=== PATIENT | female | born 1945 | race African-American/Black ===

== ENCOUNTER 2019-07-25 20:33 | Inpatient (IN) | payer MEDICARE, OTHER ==
--- NOTE | 2019-07-25 21:13 | PDOC ---
History of Present Illness - General Chief Complaint: Rectal Bleed Stated Complaint: GI BLEED Time Seen by Provider: 07/25/19 21:12 History Source: Patient Exam Limitations: No Limitations - History of Present Illness Initial Comments: 07/25/19 21:59 73yF w PMHx DM, HTN, HLD, CHF, CT s/p stents x2, CVA x2 (R sided weakness) on coumadin, COPD presenting w 1d rectal bleeding. Spotting this morning, then large amounts of bleeding with clots w BM this afternoon. Associated lightheadedness and fatigue. Also has 1d cough, nasal congestion. Denies fever, nausea/vomiting, chest pain, SOB, ABD pain, urinary changes. Was supposed to fly back home to [facility]. Past History - Past Medical History Allergies/Adverse Reactions: Allergies Allergy/AdvReac Type Severity Reaction Status Date / Time amoxicillin Allergy Verified 07/25/19 20:42 Home Medications: Ambulatory Orders Unobtainable 07/25/19 - Psycho Social/Smoking Cessation Hx Smoking History: Never smoked Have you smoked in the past 12 months: No Information on smoking cessation initiated: No Hx Alcohol Use: No Drug/Substance Use Hx: No Review of Systems - Review of Systems Constitutional: No: Chills, Fever HEENTM: No: Eye Pain, Ear Discharge, Hearing Loss Respiratory: Yes: Cough. No: Shortness of Breath Cardiac (ROS): No: Chest Pain, Palpitations ABD/GI: No: Abdominal Distended, Constipated, Diarrhea, Nausea, Vomiting : No: Burning, Dysuria Musculoskeletal: No: Back Pain, Joint Pain Integumentary: Yes: Dryness. No: Bruising Neurological: No: Headache, Seizure Psychiatric: No: Anxiety, Depression Endocrine: No: Intolerance to Cold, Intolerance to Heat Hematologic/Lymphatic: Yes: Blood Clots, Easy Bleeding *Physical Exam - Vital Signs Last Vital Signs Temp Pulse Resp BP Pulse Ox 97.3 F L 126 H 18 107/52 L 98 07/25/19 20:42 07/25/19 20:42 07/25/19 20:42 07/25/19 20:42 07/25/19 20:42 - Physical Exam General Appearance: Yes: Nourished, Appropriately Dressed, Mild Distress HEENT: positive: EOMI, AIDAN, Normal Voice, Nasal Congestion, Hearing Grossly Normal. negative: Scleral Icterus (R), Scleral Icterus (L) Respiratory/Chest: positive: Lungs Clear, Normal Breath Sounds. negative: Chest Tender, Respiratory Distress, Crackles, Rales, Rhonchi, Stridor, Wheezing Cardiovascular: positive: Regular Rhythm, S1, S2, Tachycardia. negative: Edema , Murmur Gastrointestinal/Abdominal: positive: Normal Bowel Sounds, Flat, Soft. negative : Tender, Organomegaly Rectal Exam: positive: heme negative stool, normal exam, normal rectal tone. negative: hemorrhoids Extremity: positive: Delayed Capillary Refill Integumentary: positive: Normal Color, Dry Neurologic: positive: chief minister II-XII NML intact, Fully Oriented, Alert, Normal Response, Responsive. negative: Numbness, Confused, Disoriented ED Treatment Course - LABORATORY CBC & Chemistry Diagram: 07/26/19 04:05 07/25/19 21:51 Medical Decision Making - Medical Decision Making 07/25/19 22:02 EKG sinus tachycardia w PVCs, TWI aVL, ST depression V6, HR 124, QTc 497 Rectal exam - no hemorrhoids, normal rectal tone, no active bleeding WBC 11.2, Hgb 5.4, INR 11.04 CT A/P shows diffuse liquid stools w colonic wall thickening --- 73yF w PMHx DM, HTN, HLD, CHF, CT s/p stents x2, CVA x2 (R sided weakness) on coumadin, COPD presenting w 1d painless rectal bleeding. Hemodynamically stable , no active bleeding Angiodysplasia vs diverticulosis vs colorectal CA. Supratherapeutic coumadin w INR 11. HypoK 2.6 Cough, nasal congestion likely 2/2 viral URI. Low concern for PNA vs COPD exacerbation (clear lung sounds) vs variceal bleeding (normal LFTs, no sign of cirrhosis from blood work) Given 0.5L NS, 2u pRBC, 2 FFP PO+IV KCl, 2 Mg, vit K. Consent obtained for transfusion Consulted Dr Ashley MARIA - advised give 2 FFP, get 2 lines, will follow Admitted ICU for GI bleeding on supratherapeutic warfarin, anemia requiring transfusion, hypokalemia Consulted ICU. Advised no beds available. Discharge - Discharge Information Problems reviewed: Yes Clinical Impression/Diagnosis: Rectal bleed, Hypokalemia Anemia Qualifiers: Anemia type: unspecified type Qualified Code(s): D64.9 - Anemia, unspecified Condition: Guarded - Follow up/Referral - Patient Discharge Instructions - Post Discharge Activity
--- NOTE | 2019-07-25 21:26 | PDOC ---
Attending Attestation - Resident Resident Name: Dre Rodriges - ED Attending Attestation I have performed the following: I have examined & evaluated the patient, The case was reviewed & discussed with the resident, I agree w/resident's findings & plan - HPI HPI: 07/25/19 23:20 Pt comes with rectal bleed heavy and weakness. She was here for the week from [place]. she is staying at the [facility]. Here with her orthodoxy. She was suppiosed to [facility] back today, but was too weak to go. She is obese. - Physicial Exam PE: 07/26/19 03:03 Pt has globular obese abdomen. Pt has minimal bleed on exam. Pt is A+Ox3 and appears tired. Afebrile VSS Heart and lungs normal - Medical Decision Making 07/25/19 23:18 Pt was an alcoholic in the past. She has been free of alcohol for years. Pt has had rectal bleed since last night. Likely all due to INR of 11 and internal hemorrhoids. 07/25/19 23:21 Hb is 5; she will be transfused She will have Vit K+ 5 mg PO for reversal of coumadin. 07/26/19 03:03 Patient Name: JALEEL RUSSO THIS IS A PRELIMINARY REPORT FROM [facility] DATE OF SERVICE: 2019-07-26 00:16:29 IMAGES: 488 EXAM: ABDOMEN \T\ PELVIS CT WITH CONTR HISTORY: Rectal bleeding COMPARISON: None. FINDINGS: Lung bases are clear. The visualized cardiac chambers are normal size and configuration. Normal liver, gallbladder, pancreas, spleen, adrenal glands and kidneys. The stomach and small bowel are normal. Diffuse liquid stools noted with a colonic wall thickening which could indicate a diarrheal illness. No abnormal intraluminal enhancement to suggest a source of GI bleeding. There is no aortic aneurysm. There is no significant retroperitoneal lymphadenopathy. The appendix is normal. Status post hysterectomy. Urinary bladder is unremarkable. There is no pelvic free fluid. No discrete pelvic lymphadenopathy is identified. IMPRESSION: Possible diarrheal illness without colonic wall thickening. 07/26/19 21:20 Repeat CBC and PT/INR ordered. CBC went to 4 prior to 2U PRBC and FFPs Heart Score/ECG Review - ECG Intrepretation Rhythm: Regular Rhythm - Eldon Eldon: Normal - P and TN Delta Wave(s) Present: No WPW: No - QRS Poor R Wave Progression: No Q Wave Present: No - ST and T Early Repolarization: No Non Specific ST-T Wave changes: No Flattened T Waves: No Prolonged Q-T Interval: No - ECG Impressions Tachycardia: Sinus (Pt has PVCs.)
[2019-07-25] MEDS ORDERED: SODIUM CHLORIDE 0.9% 500 ML INFUS.BAG IV ONE (21:46)
[2019-07-25 22:08] LABS: BASO % 0.2 % (0-2.0); HEMATOCRIT 16.2 % (32.4-45.2); LYMPH % 19.4 % (8-40); MCH 29.8 pg (25.7-33.7); MCHC 33.2 g/dl (32.0-36.0); MEAN CELL VOLUME 89.8 fl (80-96); MEAN PLT VOLUME 8.8 fl (7.5-11.1); NEUT % 76.4 % (42.8-82.8); PLATELET COUNT 237 K/MM3 (134-434); RDW 15.4 % (11.6-15.6); WHITE BLOOD COUNT 11.2 K/mm3 (4.0-10.0)
[2019-07-25 22:12] LABS: HEMOGLOBIN 5.4 GM/dL (10.7-15.3)
[2019-07-25 22:32] LABS: PROTHROMBIN TIME (PATIENT) 133.5 SEC (9.7-13.0)
[2019-07-25 22:33] LABS: INR 11.04 (0.83-1.09)
[2019-07-25 22:45] LABS: ALBUMIN 2.4 g/dl (3.4-5.0); BILIRUBIN,TOTAL 0.3 mg/dL (0.2-1); BLOOD UREA NITROGEN 51.9 mg/dL (7-18); CALCIUM 7.6 mg/dL (8.5-10.1); CREATININE 1.1 mg/dL (0.55-1.3); TOT PROT 5.2 g/dl (6.4-8.2)
[2019-07-25 22:56] LABS: POTASSIUM 2.6 mmol/L (3.5-5.1)
[2019-07-25] MEDS ORDERED: POTASSIUM CHLORIDE ORAL LIQUID 20 MEQ/15 ML PO ONE (22:59)
[2019-07-25] MEDS ORDERED: PHYTONADIONE 5 MG TABLET PO ONE (23:02)
[2019-07-25] MEDS ORDERED: MAGNESIUM SULF 50% (8.12 MEQ/2 ML-1 GM VIAL) IVPB ONE (23:04)
[2019-07-25] MEDS ORDERED: KCL 10 MEQ IVPB 10 MEQ/100 ML INFUS.BAG IVPB ONE ×2 (23:22→23:31)
[2019-07-25] MEDS ORDERED: POTASSIUM CHLORIDE ORAL LIQUID 20 MEQ/15 ML ONE (23:22)
[2019-07-25] MEDS: KCL 10 MEQ IVPB 10 MEQ/100 ML INFUS.BAG IVPB SCH (23:28)
[2019-07-25] MEDS ORDERED: PHYTONADIONE 5 MG TABLET ONE (23:31)
[2019-07-25] MEDS ORDERED: MAGNESIUM SULF 50% (8.12 MEQ/2 ML-1 GM VIAL) ONE (23:31)
[2019-07-26] MEDS: KCL 10 MEQ IVPB 10 MEQ/100 ML INFUS.BAG IVPB SCH ×2 (00:38→03:00)
[2019-07-26 04:26] LABS: BASO % 0.3 % (0-2.0); HEMATOCRIT 13.2 % (32.4-45.2); LYMPH % 21.7 % (8-40); MCH 30.8 pg (25.7-33.7); MCHC 34.1 g/dl (32.0-36.0); MEAN CELL VOLUME 90.4 fl (80-96); MEAN PLT VOLUME 8.8 fl (7.5-11.1); MONO % 4.2 % (3.8-10.2); NEUT % 73.8 % (42.8-82.8); PLATELET COUNT 221 K/MM3 (134-434); RBC 1.46 M/mm3 (3.60-5.2); RDW 15.6 % (11.6-15.6); WHITE BLOOD COUNT 9.9 K/mm3 (4.0-10.0)
[2019-07-26 04:35] LABS: HEMOGLOBIN 4.5 GM/dL (10.7-15.3)
[2019-07-26] MEDS ORDERED: PANTOPRAZOLE SODIUM 40 MG VIAL ONE (06:26)
[2019-07-26 06:27] LABS: PROTHROMBIN TIME (PATIENT) 149.7 SEC (9.7-13.0)
[2019-07-26 06:28] LABS: INR 12.37 (0.83-1.09)
[2019-07-26] MEDS: PANTOPRAZOLE SODIUM 80 MG in SODIUM CHLORIDE 100 ML IVPB SCH ×2 (06:33→18:53)
[2019-07-26] MEDS ORDERED: MAGNESIUM SULF 50% (8.12 MEQ/2 ML-1 GM VIAL) IVPB ONE (06:37)
[2019-07-26] MEDS ORDERED: POTASSIUM CHLORIDE TABS 20 MEQ TABLET.ER (FP) PO ONE (06:39)
[2019-07-26] MEDS ORDERED: INSULIN SLIDING SCALE (NOVOLOG) 1 VIAL SQ SCH ×2 (07:00→07:10)
--- NOTE | 2019-07-26 07:14 | PN ---
Teaching Attending Note Name of Resident: Deep Yee ATTENDING PHYSICIAN STATEMENT I saw and evaluated the patient. I reviewed the resident's note and discussed the case with the resident. I agree with the resident's findings and plan as documented. SUBJECTIVE: 73y woman w/ DM, HTN, HLD, CHF, MN s/p stents x2, CVA x2 (R sided weakness) on coumadin, COPD presenting with 1 day of multiple episodes of large bloody bowel movements. Patient also complained of nonbloody nonbilious vomiting. She denies any loss of consciousness, is not taking aspirin for the last 6 months, takes Coumadin however is not taking any higher doses than necessary recently. Dr. Ramirez was called from the ER.Reports remote history of colonoscopy about 20 years ago. OBJECTIVE: Last Vital Signs Temp Pulse Resp BP Pulse Ox 97.4 F L 111 H 19 149/73 100 07/26/19 06:41 07/26/19 06:41 07/26/19 00:41 07/26/19 06:41 07/26/19 06:41 GENERAL: Well developed, well nourished. Awake and alert. No acute distress. HEENT: Normocephalic, atraumatic. PERRLA, EOMI. No conjunctival pallor. Sclera are non- icteric. Moist mucous membranes. Oropharynx is clear. NECK: Supple. Full ROM. No JVD. Carotid pulses 2+ and symmetric, without bruits. No thyromegaly. No lymphadenopathy. CARDIOVASCULAR: Regular rate and rhythm. No murmurs, rubs, or gallops. Distal pulses are 2+ and symmetric. PULMONARY: No evidence of respiratory distress. Lungs clear to auscultation bilaterally. No wheezing, rales or rhonchi. ABDOMINAL: Soft. Non-tender. Non-distended. No rebound or guarding. No organomegaly. Normoactive bowel sounds. MUSCULOSKELETAL Normal range of motion at all joints. No bony deformities or tenderness. No CVA tenderness. EXTREMITIES: No cyanosis. No clubbing. No edema. No calf tenderness. SKIN: Warm and dry. Normal capillary refill. No rashes. No jaundice. NEUROLOGICAL: Mentating well, awake, alert, oriented. PSYCHIATRIC: Cooperative. Good eye contact. Appropriate mood and affect. Abnormal Lab Results 07/25/19 07/25/19 07/25/19 21:51 21:51 21:51 WBC 11.2 H RBC 1.80 L Hgb 5.4 L* Hct 16.2 L Absolute Neuts (auto) 8.6 H PT with INR 133.50 H INR 11.04 H* Potassium 2.6 L* Chloride 97 L BUN 51.9 H Random Glucose 250 H Calcium 7.6 L Total Protein 5.2 L Albumin 2.4 L Crossmatch 07/25/19 07/26/19 07/26/19 21:51 04:05 04:05 WBC RBC 1.46 L Hgb 4.5 L* Hct 13.2 L Absolute Neuts (auto) PT with INR 149.70 H INR 12.37 H* Potassium Chloride BUN Random Glucose Calcium Total Protein Albumin Crossmatch See Detail Imaging studies reviewed ASSESSMENT AND PLAN: Critically ill 73-year-old woman with massive lower GI bleeding, Severe anemia, hypotensive in the ER, tachycardic with the profound diarrhea, hypercoagulable secondary to Coumadin toxicity. Patient is mentating well. Admit to ICU N.p.o. Check CBC every 6 hours Transfuse PRBCs as needed Transfuse FFP's as needed Status post 5 mg of vitamin K IV Monitor vital signs closely Start Protonix drip Monitor INR closely GI consult for urgent evaluation 2 large-bore IVs in upper extremities Avoid any antiplatelets or coagulants Send lactic acid #Severe hypokalemialikely secondary to found diarrheanoted to have U waves on EKG Aggressive potassium supplementation p.o. and IV Monitor on cardiac monitoring Check other electrolytes including magnesium and phosphate and replete PRN #Hyperglycemia NovoLog sliding scale A1c #Hypoalbuminemia #Leukocytosis About 35 minutes spent caring for this critically ill patient
--- NOTE | 2019-07-26 07:26 | HP ---
CHIEF COMPLAINT: Rectal bleeding PCP: Not on Staff. Pt. is from [facility] HISTORY OF PRESENT ILLNESS: Pt. is a 73 y.o. F w/ PMHx. DM2, HTN, HLD, CHF, CAD (had AK, s/p 2 stents- not on ASA), CVA x 2 (residual R. sided weakness on Coumadin), and COPD presents with rectal bleeding over the last day. Pt. states that in the morning bleeding started with some spotting on wipes but that by the afternoon Pt. was having harini blood loss with clots. Pt. states that this has never happened before. Per RN Pt. had multiple bloody BMs in ED. Pt. states that she received a call from her PCP to visit the office because her INR was "really high." Pt. denies any recent adjustments to her Coumadin dose. She takes 5 mg everyday except Saturday when she takes 2.5 mg. Pt. denies any changes to her diet and states that she eats a stable 8 Oz. of leafy green vegetables per week. Pt. states she last had a colonoscopy over 20 years ago that was unremarkable. Pt. had Pap Smear 10 years ago that was negative. Pt. is uptodate with Flu and Pneumonia vaccines. Pt. endorses lightheadedness, fatigue , decreased PO intake over the last 3 days and 1 day of NBNB emesis. Pt. denies eating any strange foods or anyone else in her household being sick. Pt. endorses feeling "cold all the time." Pt. denies fever, rigors, chest pain, or shortness of breath. Unable to obtain medications as Pt. does not remember all of her medications and states her daughter has the list. Daughter will return in the AM. ER course was notable for: (1)0.5L NS, 2 units pRBCs, 2 gm Mag. Sulfate (2) 40 meq PO and 30 meq IV KCL, 5mg Vit. K (3) NPO Recent Travel: Recently came from [place], was supposed to fly back over night. PAST MEDICAL HISTORY: As above PAST SURGICAL HISTORY: Hysterectomy Social History: SmokinPPD x 40 years, Quit ~1 year ago Alcohol: 6-pack/ day x 40 years, Now does not drink Drugs: Denies Pt. lives in her home with her daughter and Son-in law, is independent. Allergies amoxicillin Allergy (Verified 07/25/19 20:42) HOME MEDICATIONS: Home Medications Medication Instructions Recorded Unobtainable 07/25/19 REVIEW OF SYSTEMS As above PHYSICAL EXAMINATION Vital Signs - 24 hr 07/25/19 07/26/19 07/26/19 20:42 00:41 06:41 Temperature 97.3 F L 98.0 F 97.4 F L Pulse Rate 126 H Pulse Rate [ 99 H 111 H Apical] Respiratory 18 19 Rate Blood Pressure 107/52 L Blood Pressure 118/65 149/73 [Right Arm] O2 Sat by Pulse 98 98 100 Oximetry (%) GENERAL: Awake, alert, and fully oriented, in no acute distress. HEAD: Normal with no signs of trauma. EYES: Pupils equal, round and reactive to light, extraocular movements intact, sclera anicteric, conjunctiva clear. EARS, NOSE, THROAT: Ears normal, nares patent, oropharynx clear without exudates. Moist mucous membranes. LUNGS: Anterior breath sounds clear to auscultation, no wheezing or crackles, no accessory muscle use HEART: Regular rate and rhythm, normal S1 and S2 without murmur] ABDOMEN: Soft, nontender, obese not distended, normoactive bowel sounds, no guarding, no rebound, no masses. Per chart: rectal exam was negative to harini blood on glove, or hemorrhoids. Pt. has good rectal tone. UPPER EXTREMITIES: 2+ radial pulses, warm, well-perfused. No cyanosis. No clubbing. No peripheral edema. LOWER EXTREMITIES: 2+ dorsal pedal pulses, warm, well-perfused. No calf tenderness. No peripheral edema. NEUROLOGICAL: Normal speech. Pt. alert and oriented, 4/5 muscle strength on R. side vs. 5/5 muscle strength on left. Sensation grossly intact through out. PSYCHIATRIC: Cooperative. Good eye contact. Appropriate mood and affect. SKIN: Warm, dry, xerotic Laboratory Results - last 24 hr 07/25/19 07/25/19 07/25/19 21:51 21:51 21:51 WBC 11.2 H RBC 1.80 L Hgb 5.4 L* Hct 16.2 L MCV 89.8 MCH 29.8 MCHC 33.2 RDW 15.4 Plt Count 237 MPV 8.8 Absolute Neuts (auto) 8.6 H Neutrophils % 76.4 Lymphocytes % 19.4 Monocytes % 4.0 Eosinophils % 0.0 Basophils % 0.2 Nucleated RBC % 0 PT with INR 133.50 H INR 11.04 H* Sodium 138 Potassium 2.6 L* Chloride 97 L Carbon Dioxide 30 Anion Gap 12 BUN 51.9 H Creatinine 1.1 Est GFR (CKD-EPI)AfAm 58.50 Est GFR (CKD-EPI)NonAf 50.47 POC Glucometer Random Glucose 250 H Calcium 7.6 L Total Bilirubin 0.3 AST 15 ALT 13 Alkaline Phosphatase 63 Creatine Kinase 79 Troponin I 0.03 Total Protein 5.2 L Albumin 2.4 L Blood Type Antibody Screen Crossmatch 07/25/19 07/25/19 07/26/19 21:51 22:50 04:05 WBC 9.9 RBC 1.46 L Hgb 4.5 L* Hct 13.2 L MCV 90.4 MCH 30.8 MCHC 34.1 RDW 15.6 Plt Count 221 MPV 8.8 Absolute Neuts (auto) 7.3 Neutrophils % 73.8 Lymphocytes % 21.7 Monocytes % 4.2 Eosinophils % 0.0 Basophils % 0.3 Nucleated RBC % 0 PT with INR INR Sodium Potassium Chloride Carbon Dioxide Anion Gap BUN Creatinine Est GFR (CKD-EPI)AfAm Est GFR (CKD-EPI)NonAf POC Glucometer Random Glucose Calcium Total Bilirubin AST ALT Alkaline Phosphatase Creatine Kinase Troponin I Total Protein Albumin Blood Type B POSITIVE B POSITIVE Antibody Screen Negative Crossmatch See Detail 07/26/19 07/26/19 04:05 06:48 WBC RBC Hgb Hct MCV MCH MCHC RDW Plt Count MPV Absolute Neuts (auto) Neutrophils % Lymphocytes % Monocytes % Eosinophils % Basophils % Nucleated RBC % PT with INR 149.70 H INR 12.37 H* Sodium Potassium Chloride Carbon Dioxide Anion Gap BUN Creatinine Est GFR (CKD-EPI)AfAm Est GFR (CKD-EPI)NonAf POC Glucometer 197 Random Glucose Calcium Total Bilirubin AST ALT Alkaline Phosphatase Creatine Kinase Troponin I Total Protein Albumin Blood Type Antibody Screen Crossmatch ASSESSMENT/PLAN: Pt. is a 73 y.o. F w/ PMHx. DM2, HTN, HLD, CHF, CAD (had AK, s/p 2 stents- not on ASA), CVA x 2 (residual R. sided weakness on Coumadin), and COPD presents with rectal bleeding over the last day. #Rectal Bleed likey 2/2 Supratherapeutic INR INR 11--> 12.4 f/u Rpt. INR Given Vit. K 5 mg Given 2 units of pRBCs, luiz order 4 more units, will give and additional 2 more units. Repeat CBC was done prior to receiving blood HgB: 5.4-->4.5, f/u Rpt. CBC Q6H Protonix Gtt Consult to GI Dr. Ramirez appreciated Given 1 unit of FFP, will order 3 more units Hold Coumadin, Pt. denies taking ASA, therefore no platelets indicated at this time ICU monitoring Fall precautions VS Q2H, Pt. was tachycardic and hypotensive on arrival, repsonsive to IVF f/u LA Leukocytosis likely reactive from GI bleed, however CT-AP did show diffuse liquid stool with colonic wall thickening. If Pt. develops fever or increasing WBC, would have low threshold to get BCx. and Stool Cx. and start empitic Abx. therrapy. Pt. received Zosyn in ED #Hypokalemia with EKG changes K: 2.6 Given 40 meq PO, and 30meq IV will order an additional 40meq PO and place 40me in IVF cardiac monitoring f/u Mag, Given 2mg, will give an additional 2mg of Mag. sulfate #RONNI on CKD? likely secondary to severe blood loss anemia causing hypo perfusion, will treat anemia, c/w IV, trend renal function #DM2 #HTN #HLD #CHF #CAD #Hx. of CVA hold all AC will need reconciliation of medication in AM when daughter arrives BGMs ACHS ISS ACHS f/u Echo #FEN NS @ monitor electrolytes and replete as needed, hypokalemia as above NPO #DVT Ppx. SCDs Visit type - Emergency Visit Emergency Visit: Yes ED Registration Date: 07/25/19 Care time: The patient presented to the Emergency Department on the above date and was hospitalized for further evaluation of their emergent condition. - New Patient This patient is new to me today: Yes Date on this admission: 07/26/19 - Critical Care Critical Care patient: Yes Total Critical Care Time (in minutes): 45 Critical Care Statement: The care of this patient involved high complexity decision making to prevent further life threatening deterioration of the patient 's condition and/or to evaluate & treat vital organ system(s) failure or risk of failure. ATTENDING PHYSICIAN STATEMENT I saw and evaluated the patient. I reviewed the resident's note and discussed the case with the resident. I agree with the resident's findings and plan as documented. SUBJECTIVE: OBJECTIVE: ASSESSMENT AND PLAN:
--- NOTE | 2019-07-26 07:31 | CON.GI ---
Consult Consult Specialty:: GI coverage for Dr Chavez - History of Present Illness History of Present Illness: 73yF w PMHx DM, HTN, HLD, CHF, MN s/p stents x2, CVA x2 (R sided weakness) on coumadin, COPD was doing well until yesterday afternoon when she developed several episodes of profuse painless rectal bleeding. SHe has Afib and is on Coumadin. INR is supratherapeutic. The last bowel movement was at 6 am this morning. She receive 2 units of FFP and 3units of PRBC. Ct pending--no bleeding lesions await official read - Alcohol/Substance Use Hx Alcohol Use: No - Smoking History Smoking history: Never smoked Have you smoked in the past 12 months: No Home Medications - Allergies Allergies/Adverse Reactions: Allergies Allergy/AdvReac Type Severity Reaction Status Date / Time amoxicillin Allergy Verified 07/25/19 20:42 - Home Medications Home Medications: Ambulatory Orders Atorvastatin Ca [Lipitor] 40 mg PO HS 07/26/19 Carvedilol [Coreg -] 1 tab PO BID 07/26/19 Clopidogrel Bisulfate [Plavix] 75 mg PO DAILY 07/26/19 Fluticasone Propionate [Flovent Hfa] 1 puff IH BID 07/26/19 Furosemide [Lasix] 40 mg PO BID 07/26/19 Lisinopril 10 mg PO DAILY 07/26/19 Nitroglycerin 0.4 mg SL Q5M PRN 07/26/19 Tiotropium Br/Olodaterol HCl [Stiolto Respimat Inhal [place]] 2 puff IH DAILY 03/06 Warfarin Na [Coumadin] 5 mg PO ASDIR 07/26/19 Physical Exam-GI Vital Signs: Vital Signs Temperature 97.4 F L 07/26/19 06:41 Pulse Rate 111 H 07/26/19 06:41 Respiratory Rate 19 07/26/19 00:41 Blood Pressure 149/73 07/26/19 06:41 O2 Sat by Pulse Oximetry (%) 100 07/26/19 06:41 Constitutional: Yes: Obese Eyes: Yes: Conjunctiva Clear Respiratory: Yes: CTA Bilaterally ...Palpate: No: Firm/Rigid, Guarding, Hepatomegaly, Mass, Pulsatile Mass, Splenomegaly Labs: CBC, BMP 07/26/19 04:05 INR, PTT INR 12.37 (0.83-1.09) H* 07/26/19 04:05 Home Medications Medication Instructions Recorded Unobtainable 07/25/19 Home Medication List Medication Instructions Recorded Confirmed Type Unobtainable 07/25/19 07/25/19 History Active Medications Generic Name Dose Route Start Last Admin Trade Name Stephany PRN Reason Stop Dose Admin Chlorhexidine Gluconate 1 applic 07/26/19 22:00 Hibiclens For Decolonization - TP HS NIKUNJ Pantoprazole Sodium 80 mg/ 100 mls @ 10 mls/hr 07/26/19 06:15 07/26/19 06:33 Sodium Chloride IVPB 07/29/19 06:10 10 mls/hr Q10H INKUNJ Administration 8 MG/HR Potassium Chloride 40 meq/ 1,020 mls @ 125 mls/hr 07/26/19 07:15 Sodium Chloride IV Q8H NIKUNJ Insulin Aspart 1 vial 07/26/19 07:10 Novolog Vial Sliding Scale - SQ ACHS NIKUNJ Protocol Mupirocin 1 applic 07/26/19 10:00 Bactroban Ointment (For Decolonization) - NS 07/31/19 09:59 BID NIKUNJ CBCD WBC 10.8 K/mm3 (4.0-10.0) H 07/26/19 09:05 RBC 2.33 M/mm3 (3.60-5.2) L 07/26/19 09:05 Hgb 6.8 GM/dL (10.7-15.3) L* 07/26/19 09:05 Hct 20.1 % (32.4-45.2) L D 07/26/19 09:05 MCV 86.3 fl (80-96) 07/26/19 09:05 MCHC 33.7 g/dl (32.0-36.0) 07/26/19 09:05 RDW 16.0 % (11.6-15.6) H 07/26/19 09:05 Plt Count 142 K/MM3 (134-434) D 07/26/19 09:05 MPV 8.4 fl (7.5-11.1) 07/26/19 09:05 CMP Sodium 142 mmol/L (136-145) 07/26/19 09:26 Potassium 3.1 mmol/L (3.5-5.1) L 07/26/19 09:26 Chloride 104 mmol/L (98-107) 07/26/19 09:26 Carbon Dioxide 32 mmol/L (21-32) 07/26/19 09:26 Anion Gap 7 MMOL/L (8-16) L 07/26/19 09:26 BUN 44.7 mg/dL (7-18) H 07/26/19 09:26 Creatinine 0.8 mg/dL (0.55-1.3) 07/26/19 09:26 Random Glucose 187 mg/dL (74-106) H 07/26/19 09:26 Calcium 7.7 mg/dL (8.5-10.1) L 07/26/19 09:26 Total Bilirubin 0.3 mg/dL (0.2-1) 07/25/19 21:51 AST 15 U/L (15-37) 07/25/19 21:51 ALT 13 U/L (13-61) 07/25/19 21:51 Alkaline Phosphatase 63 U/L (45-117) 07/25/19 21:51 Total Protein 5.2 g/dl (6.4-8.2) L 07/25/19 21:51 Albumin 2.4 g/dl (3.4-5.0) L 07/25/19 21:51 CARDIAC ENZYMES Creatine Kinase 79 U/L (26-192) 07/25/19 21:51 Troponin I 0.03 ng/ml (0.00-0.05) 07/25/19 21:51 Problem List - Problems (1) Painless rectal bleeding Assessment/Plan: r/o diverticular bleeding R> transfuse to Hgb greater than 8 may have ice chips will need to be in ICU Dr Chavez will resume care in am Code(s): K62.5 - HEMORRHAGE OF ANUS AND RECTUM
[2019-07-26 07:36] LABS: BLOOD UREA NITROGEN 50.7 mg/dL (7-18); CALCIUM 7.3 mg/dL (8.5-10.1); POTASSIUM 3.1 mmol/L (3.5-5.1)
[2019-07-26 09:19] LABS: HEMATOCRIT 20.1 % (32.4-45.2); MCH 29.1 pg (25.7-33.7); MCHC 33.7 g/dl (32.0-36.0); MEAN CELL VOLUME 86.3 fl (80-96); MEAN PLT VOLUME 8.4 fl (7.5-11.1); PLATELET COUNT 142 K/MM3 (134-434); RBC 2.33 M/mm3 (3.60-5.2); WHITE BLOOD COUNT 10.8 K/mm3 (4.0-10.0)
[2019-07-26 09:26] LABS: MAGNESIUM 3.4 mg/dL (1.8-2.4)
[2019-07-26 09:27] LABS: HEMOGLOBIN 6.8 GM/dL (10.7-15.3)
[2019-07-26 09:36] LABS: INR 2.05 (0.83-1.09); PROTHROMBIN TIME (PATIENT) 24.4 SEC (9.7-13.0)
--- NOTE | 2019-07-26 09:36 | PN ---
Progress Note (short form) - Note Progress Note: Subjective: still in ER. denies abd pain, CP , SOB, palpitations, or dysuria. feels occasionally dizzy. felt light headed when she sat for me during exam. feels fatigued. reported non bloody emesis at home. She was not aware of her rectal bleed due to possible LOC , but her daughter told her she had dark/black blood from rectum. In ER she was bleeding but it stopped some time at night , RN is not sure. RN got report that blood was dark. No h/o GI bleed. has A fib per her, and is on coumadin. was prescribed prednisone and Abx recently. she finished both already. on had INR checked and was told to stop her coumadin due to elevated level Objective: Vital Signs: Last Vital Signs Temp Pulse Resp BP Pulse Ox 97.4 F L 102 H 20 165/70 100 07/26/19 06:41 07/26/19 08:19 07/26/19 08:19 07/26/19 08:19 07/26/19 08:19 Laboratory Results - last 24 hr 07/25/19 07/25/19 07/25/19 21:51 21:51 21:51 WBC 11.2 H RBC 1.80 L Hgb 5.4 L* Hct 16.2 L MCV 89.8 MCH 29.8 MCHC 33.2 RDW 15.4 Plt Count 237 MPV 8.8 Absolute Neuts (auto) 8.6 H Neutrophils % 76.4 Lymphocytes % 19.4 Monocytes % 4.0 Eosinophils % 0.0 Basophils % 0.2 Nucleated RBC % 0 PT with INR 133.50 H INR 11.04 H* Sodium 138 Potassium 2.6 L* Chloride 97 L Carbon Dioxide 30 Anion Gap 12 BUN 51.9 H Creatinine 1.1 Est GFR (CKD-EPI)AfAm 58.50 Est GFR (CKD-EPI)NonAf 50.47 POC Glucometer Random Glucose 250 H Calcium 7.6 L Magnesium Total Bilirubin 0.3 AST 15 ALT 13 Alkaline Phosphatase 63 Creatine Kinase 79 Troponin I 0.03 Total Protein 5.2 L Albumin 2.4 L Blood Type Antibody Screen Crossmatch 07/25/19 07/25/19 07/26/19 21:51 22:50 04:05 WBC RBC Hgb Hct MCV MCH MCHC RDW Plt Count MPV Absolute Neuts (auto) Neutrophils % Lymphocytes % Monocytes % Eosinophils % Basophils % Nucleated RBC % PT with INR INR Sodium 140 Potassium 3.1 L Chloride 101 Carbon Dioxide 28 Anion Gap 11 BUN 50.7 H Creatinine 1.0 Est GFR (CKD-EPI)AfAm 65.64 Est GFR (CKD-EPI)NonAf 56.64 POC Glucometer Random Glucose 254 H Calcium 7.3 L Magnesium 3.4 H Total Bilirubin AST ALT Alkaline Phosphatase Creatine Kinase Troponin I Total Protein Albumin Blood Type B POSITIVE B POSITIVE Antibody Screen Negative Crossmatch See Detail 07/26/19 07/26/19 07/26/19 04:05 04:05 06:48 WBC 9.9 RBC 1.46 L Hgb 4.5 L* Hct 13.2 L MCV 90.4 MCH 30.8 MCHC 34.1 RDW 15.6 Plt Count 221 MPV 8.8 Absolute Neuts (auto) 7.3 Neutrophils % 73.8 Lymphocytes % 21.7 Monocytes % 4.2 Eosinophils % 0.0 Basophils % 0.3 Nucleated RBC % 0 PT with INR 149.70 H INR 12.37 H* Sodium Potassium Chloride Carbon Dioxide Anion Gap BUN Creatinine Est GFR (CKD-EPI)AfAm Est GFR (CKD-EPI)NonAf POC Glucometer 197 Random Glucose Calcium Magnesium Total Bilirubin AST ALT Alkaline Phosphatase Creatine Kinase Troponin I Total Protein Albumin Blood Type Antibody Screen Crossmatch 07/26/19 09:05 WBC 10.8 H RBC 2.33 L Hgb 6.8 L* Hct 20.1 L D MCV 86.3 MCH 29.1 MCHC 33.7 RDW 16.0 H Plt Count 142 D MPV 8.4 Absolute Neuts (auto) Neutrophils % Lymphocytes % Monocytes % Eosinophils % Basophils % Nucleated RBC % PT with INR INR Sodium Potassium Chloride Carbon Dioxide Anion Gap BUN Creatinine Est GFR (CKD-EPI)AfAm Est GFR (CKD-EPI)NonAf POC Glucometer Random Glucose Calcium Magnesium Total Bilirubin AST ALT Alkaline Phosphatase Creatine Kinase Troponin I Total Protein Albumin Blood Type Antibody Screen Crossmatch Physical Exam: NAD, awake, alert, cooperative . MMM, nl oropharynx. CV: RRR, no MRG Lungs: scattered wheezes in lower lung cormier ABd: soft, mild TTP in lower quadrants. NL BS. no guarding Ext : No edema or erythema . dry skin . neuro: EOMI, round equal pupils, reactive to light. slight efacement in L nasolabial fold. tongue and uvula at mid line . strength 5/5 in upper and lower extremities proximally and distally. 2+ knee jerk and biceps reflexes b/l. Imaging: Abd/P CT prelim read: liquid stool with no colonic wall thickening. EKG: U waves Assessment/Plan: 73 y/o lady with h/o A fib, DM, HTN, HLD, CHF, CT s/p stents x2, CVA x2, on coumadin, COPD who presented with rectal bleed and was found to have coumadin coagulopathy and severe anemia 1- Severe acute blood loss anemia: due to GI bleed 2- GI bleed . most likely lower 3- severe coumadin coagulopathy 4- severe hypokalemia 5- h/o A fib 6- H/o DM plan : - now s/p 2 units of RBC and 2 more are ordered. - now s/p 3 units of FFPs. s/p 5 of Vit K - will check CBC and INR now . will decide on next blood product after results - hemodynamically stable , but tachycardic and has signs of orthostatic hypotension - explained to her the risk of stroke with holding coumadin and reversing her coagulopathy in the setting of severe bleed . she accepts risk - GI was called, but patient has not been seen yet. Note ispending Recs - cont PPI gtt for now ( recent prednisone, not clear if black stool ) - received IV and PO K. will repeat level now - corrected Ca 8.3. will have to monitor level and give Ca after few units of RBC - EKG reviewed. - IVF - has 2 peripheral IVs and an EJ was just placed - patient is not stable for the floor at this moment due to tachycardia and signs of orthostasis. needs ICU monitoring. spoke to Nitish in ICU. spoke to RN lasting room supervisor. working on ICU bed . - SCDS Visit type - Emergency Visit Emergency Visit: Yes ED Registration Date: 07/25/19 Care time: The patient presented to the Emergency Department on the above date and was hospitalized for further evaluation of their emergent condition. - New Patient This patient is new to me today: Yes Date on this admission: 07/26/19 - Critical Care Critical Care patient: Yes Total Critical Care Time (in minutes): 45 Critical Care Statement: The care of this patient involved high complexity decision making to prevent further life threatening deterioration of the patient 's condition and/or to evaluate & treat vital organ system(s) failure or risk of failure.
[2019-07-26] MEDS ORDERED: ALBUTEROL SO4 0.083% IH SOL 2.5 MG/3 ML VIAL.NEB. NEB PRN (10:10)
[2019-07-26 10:36] LABS: BLOOD UREA NITROGEN 44.7 mg/dL (7-18); CALCIUM 7.7 mg/dL (8.5-10.1); CREATININE 0.8 mg/dL (0.55-1.3); POTASSIUM 3.1 mmol/L (3.5-5.1)
[2019-07-26] MEDS: INSULIN SLIDING SCALE (NOVOLOG) 1 VIAL SQ SCH ×3 (10:38→22:28)
[2019-07-26] MEDS: MUPIROCIN 2% TOPICAL OINTMENT FOR DECOLONIZATION NS SCH ×2 (11:23→22:19)
[2019-07-26] MEDS: SODIUM CHLORIDE 1,000 ML with POTASSIUM CHLORIDE 40 MEQ IV SCH ×2 (12:56→16:13)
--- NOTE | 2019-07-26 14:13 | EKG ---
Test Reason : Blood Pressure : / mmHG Vent. Rate : 124 BPM Atrial Rate : 124 BPM P-R Int : 130 ms QRS Dur : 098 ms QT Int : 346 ms P-R-T Axes : 049 -29 107 degrees QTc Int : 497 ms SINUS TACHYCARDIA WITH OCCASIONAL PREMATURE VENTRICULAR COMPLEXES ABNORMAL ECG Confirmed by MD WILL, MIGUEL ANGEL ([id number]) on 07/26/2019 2:13:04 PM Referred By: Confirmed By:MIGUEL ANGEL SOLIS MD
--- NOTE | 2019-07-26 16:55 | CONSULT ---
Consult Consult Specialty:: Pulm/CCM Reason for Consultation:: Lower GIB; lightheadedness - History of Present Illness Chief Complaint: Lightheadedness History of Present Illness: 73yF w PMHx DM, HTN, HLD, CHF, ME s/p stents x2, CVA x2 (R sided weakness) on coumadin, COPD. She states that her INR is monitored regularly and at her last appointment her coumadin was held d/t elevated INR. She was rescheduled to recheck INR on saturday. She was doing well until yesterday afternoon when she had a presyncopal episode while on the toilet. Her daughter noted large amt of bright red blood per rectum, called EMS and brought her to the ED. In the ED she had no more episodes of BRBPR. VS stable 130/60, HR 110-115. Labs notable for Hgb 5.4->4.5->6.8. Her INR 11->12->2.05. She received 2 units of FFP and 3units of PRBC. CT A/P done. She was transferred to ICU for further management. - History Source History Provided By: Patient, Medical Record Limitations to Obtaining History: No Limitations - Past Medical History CONSTRUCTION ESTIMATOR: Yes: CVA Cardio/Vascular: Yes: AFIB, ME ...: No Endocrine: Yes: Diabetes Mellitus - Alcohol/Substance Use Hx Alcohol Use: No - Smoking History Smoking history: Former smoker Have you smoked in the past 12 months: No Home Medications - Allergies Allergies/Adverse Reactions: Allergies Allergy/AdvReac Type Severity Reaction Status Date / Time amoxicillin Allergy Verified 07/25/19 20:42 - Home Medications Home Medications: Ambulatory Orders Atorvastatin Ca [Lipitor] 40 mg PO HS 07/26/19 Carvedilol [Coreg -] 1 tab PO BID 07/26/19 Clopidogrel Bisulfate [Plavix] 75 mg PO DAILY 07/26/19 Fluticasone Propionate [Flovent Hfa] 1 puff IH BID 07/26/19 Furosemide [Lasix] 40 mg PO BID 07/26/19 Lisinopril 10 mg PO DAILY 07/26/19 Nitroglycerin 0.4 mg SL Q5M PRN 07/26/19 Tiotropium Br/Olodaterol HCl [Stiolto Respimat Inhal [place]] 2 puff IH DAILY 03/06 Warfarin Na [Coumadin] 5 mg PO ASDIR 07/26/19 Family Medical History Family History: Unremarkable Review of Systems - Review of Systems Constitutional: reports: Weakness Eyes: reports: No Symptoms HENT: reports: No Symptoms Neck: reports: No Symptoms Cardiovascular: reports: No Symptoms Respiratory: reports: No Symptoms Gastrointestinal: reports: Abdominal Pain Genitourinary: reports: No Symptoms Integumentary: reports: No Symptoms Neurological: reports: Confusion Endocrine: reports: No Symptoms Hematology/Lymphatic: reports: No Symptoms Psychiatric: reports: No Symptoms Physical Exam Vital Signs: Vital Signs Temperature 98.2 F 07/26/19 12:50 Pulse Rate 105 H 07/26/19 15:37 Respiratory Rate 22 H 07/26/19 15:37 Blood Pressure 149/104 H 07/26/19 15:37 O2 Sat by Pulse Oximetry (%) 100 07/26/19 15:30 Constitutional: Yes: Well Nourished, No Distress, Calm Eyes: Yes: WNL, Conjunctiva Clear, EOM Intact HENT: Yes: WNL, Atraumatic, Normocephalic Neck: Yes: Supple, Trachea Midline Cardiovascular: Yes: Regular Rate and Rhythm, Tachycardia, S1, S2 Respiratory: Yes: Regular, CTA Bilaterally Gastrointestinal: Yes: Normal Bowel Sounds, Soft Extremities: Yes: WNL Edema: No Peripheral Pulses WNL: Yes Neurological: Yes: WNL, Alert, Oriented ...Motor Strength: WNL Psychiatric: Yes: WNL Labs: CBC, BMP 07/26/19 09:05 07/26/19 09:26 CBC,CMP WBC 10.8 K/mm3 (4.0-10.0) H 07/26/19 09:05 RBC 2.33 M/mm3 (3.60-5.2) L 07/26/19 09:05 Hgb 6.8 GM/dL (10.7-15.3) L* 07/26/19 09:05 Hct 20.1 % (32.4-45.2) L D 07/26/19 09:05 MCV 86.3 fl (80-96) 07/26/19 09:05 MCH 29.1 pg (25.7-33.7) 07/26/19 09:05 MCHC 33.7 g/dl (32.0-36.0) 07/26/19 09:05 RDW 16.0 % (11.6-15.6) H 07/26/19 09:05 Plt Count 142 K/MM3 (134-434) D 07/26/19 09:05 MPV 8.4 fl (7.5-11.1) 07/26/19 09:05 Absolute Neuts (auto) 7.3 K/mm3 (1.5-8.0) 07/26/19 04:05 Neutrophils % 73.8 % (42.8-82.8) 07/26/19 04:05 Lymphocytes % 21.7 % (8-40) 07/26/19 04:05 Monocytes % 4.2 % (3.8-10.2) 07/26/19 04:05 Eosinophils % 0.0 % (0-4.5) 07/26/19 04:05 Basophils % 0.3 % (0-2.0) 07/26/19 04:05 Nucleated RBC % 0 % (0-0) 07/26/19 04:05 Sodium 142 mmol/L (136-145) 07/26/19 09:26 Potassium 3.1 mmol/L (3.5-5.1) L 07/26/19 09:26 Chloride 104 mmol/L (98-107) 07/26/19 09:26 Carbon Dioxide 32 mmol/L (21-32) 07/26/19 09:26 Anion Gap 7 MMOL/L (8-16) L 07/26/19 09:26 BUN 44.7 mg/dL (7-18) H 07/26/19 09:26 Creatinine 0.8 mg/dL (0.55-1.3) 07/26/19 09:26 Est GFR (CKD-EPI)AfAm 85.97 07/26/19 09:26 Est GFR (CKD-EPI)NonAf 74.17 07/26/19 09:26 POC Glucometer 133 UNITS (80-120) 07/26/19 10:36 Random Glucose 187 mg/dL (74-106) H 07/26/19 09:26 Calcium 7.7 mg/dL (8.5-10.1) L 07/26/19 09:26 Magnesium 3.4 mg/dL (1.8-2.4) H 07/26/19 04:05 Total Bilirubin 0.3 mg/dL (0.2-1) 07/25/19 21:51 AST 15 U/L (15-37) 07/25/19 21:51 ALT 13 U/L (13-61) 07/25/19 21:51 Alkaline Phosphatase 63 U/L (45-117) 07/25/19 21:51 Creatine Kinase 79 U/L (26-192) 07/25/19 21:51 Troponin I 0.03 ng/ml (0.00-0.05) 07/25/19 21:51 Total Protein 5.2 g/dl (6.4-8.2) L 07/25/19 21:51 Albumin 2.4 g/dl (3.4-5.0) L 07/25/19 21:51 Imaging - Results Cat Scan: Pending Problem List - Problems (1) Anemia Code(s): D64.9 - ANEMIA, UNSPECIFIED Qualifiers: Anemia type: unspecified type Qualified Code(s): D64.9 - Anemia, unspecified (2) Painless rectal bleeding Code(s): K62.5 - HEMORRHAGE OF ANUS AND RECTUM (3) Rectal bleed Code(s): K62.5 - HEMORRHAGE OF ANUS AND RECTUM Assessment/Plan 73yF w PMHx DM, HTN, HLD, CHF, ME s/p stents x2, CVA x2 (R sided weakness) on coumadin, COPD who presented with severe anemia 2/2 BRBPR i/s/o supratherapeutic INR Plan: -GI consulted; planned for EGD/colonoscopy -Maintain large bore IV access -Serial CBC -PPI -Normal transfusion threshold -Monitor INR; FFP and vit K for INR>1.5 and persistent bleeding -NPO for now -Hold antihypertensives -Fingersticks -vendwaines VICKI Dorsey
[2019-07-26 17:15] LABS: HEMATOCRIT 23.8 % (32.4-45.2); HEMOGLOBIN 8.2 GM/dL (10.7-15.3); MCH 29.4 pg (25.7-33.7); MCHC 34.5 g/dl (32.0-36.0); MEAN CELL VOLUME 85.1 fl (80-96); MEAN PLT VOLUME 8.8 fl (7.5-11.1); PLATELET COUNT 129 K/MM3 (134-434); RDW 15.3 % (11.6-15.6); WHITE BLOOD COUNT 10.5 K/mm3 (4.0-10.0)
[2019-07-26] MEDS ORDERED: PT OWN MED DRAWER 7, Y5N ONE (17:31)
[2019-07-26 17:34] LABS: INR 2.39 (0.83-1.09); PROTHROMBIN TIME (PATIENT) 28.5 SEC (9.7-13.0)
[2019-07-26] MEDS ORDERED: POTASSIUM CHLORIDE ORAL LIQUID 20 MEQ/15 ML PO ONE (19:29)
[2019-07-26] MEDS ORDERED: SODIUM CHLORIDE 1,000 ML IV SCH (19:30)
[2019-07-26] MEDS: SODIUM CHLORIDE 0.9%/KCL 20 MEQ/1,000 ML INFUS.BAG IV SCH (20:15)
[2019-07-26] MEDS ORDERED: CHLORHEXIDINE GLUCONATE 4% CLEANSER FOR DECOLONIZATION TP SCH (22:00)
[2019-07-27 01:41] LABS: HEMATOCRIT 22.5 % (32.4-45.2); HEMOGLOBIN 7.8 GM/dL (10.7-15.3); MCH 29.4 pg (25.7-33.7); MCHC 34.5 g/dl (32.0-36.0); MEAN CELL VOLUME 85.1 fl (80-96); MEAN PLT VOLUME 8.8 fl (7.5-11.1); PLATELET COUNT 126 K/MM3 (134-434); RBC 2.64 M/mm3 (3.60-5.2); RDW 15.9 % (11.6-15.6); WHITE BLOOD COUNT 8.3 K/mm3 (4.0-10.0)
[2019-07-27 01:59] LABS: INR 2.36 (0.83-1.09); PROTHROMBIN TIME (PATIENT) 28.1 SEC (9.7-13.0)
[2019-07-27] MEDS: INSULIN SLIDING SCALE (NOVOLOG) 1 VIAL SQ SCH ×2 (06:05→17:58)
[2019-07-27 06:31] LABS: BASO % 0.7 % (0-2.0); EOS % 0.3 % (0-4.5); HEMATOCRIT 23.2 % (32.4-45.2); LYMPH % 31.7 % (8-40); MCH 29.6 pg (25.7-33.7); MCHC 34.7 g/dl (32.0-36.0); MEAN CELL VOLUME 85.5 fl (80-96); MEAN PLT VOLUME 8.5 fl (7.5-11.1); MONO % 5.5 % (3.8-10.2); NEUT % 61.8 % (42.8-82.8); PLATELET COUNT 123 K/MM3 (134-434); RBC 2.71 M/mm3 (3.60-5.2); WHITE BLOOD COUNT 7.1 K/mm3 (4.0-10.0)
[2019-07-27 08:18] LABS: INR 2.14 (0.83-1.09); PROTHROMBIN TIME (PATIENT) 25.4 SEC (9.7-13.0)
[2019-07-27 08:33] LABS: CALCIUM 7.7 mg/dL (8.5-10.1); CREATININE 0.6 mg/dL (0.55-1.3); MAGNESIUM 2.6 mg/dL (1.8-2.4); PHOSPHOROUS 1.8 mg/dL (2.5-4.9); POTASSIUM 4.2 mmol/L (3.5-5.1)
[2019-07-27] MEDS ORDERED: NAPH,MB-DB/K PH,MBDB POWDER PACKET PO ONE (08:33)
[2019-07-27] MEDS ORDERED: TIOTROPIUM/OLODATEROL HCL (STIOLTO) 4 GM INHALER IH SCH (10:00)
[2019-07-27] MEDS: SODIUM CHLORIDE 0.9%/KCL 20 MEQ/1,000 ML INFUS.BAG IV SCH (10:32)
[2019-07-27] MEDS: MUPIROCIN 2% TOPICAL OINTMENT FOR DECOLONIZATION NS SCH (10:34)
--- NOTE | 2019-07-27 11:52 | PN ---
Teaching Attending Note Name of Resident: Daniel Watts ATTENDING PHYSICIAN STATEMENT I saw and evaluated the patient. I reviewed the resident's note and discussed the case with the resident. I agree with the resident's findings and plan as documented. SUBJECTIVE: Patient seen and examined in the ICU. Awake and alert. ECHO being performed. Denies occult bleeding. No CP or SOB. Intake & Output 07/24/19 07/25/19 07/26/19 07/27/19 23:59 23:59 23:59 23:59 Intake Total 1101 846 Balance 1101 846 Weight 220 lb 196 lb 9.6 oz 196 lb Last Vital Signs Temp Pulse Resp BP Pulse Ox 98 F 90 22 H 130/60 100 07/27/19 05:00 07/27/19 08:00 07/27/19 08:00 07/27/19 08:00 07/27/19 07:50 Active Medications Albuterol Sulfate (Ventolin 0.083% Nebulizer Soln -) 1 amp NEB Q4H PRN PRN Reason: SHORT OF BREATH/WHEEZING Chlorhexidine Gluconate (Hibiclens For Decolonization -) 1 applic TP HS [facility] Last Admin: 07/26/19 22:19 Dose: 1 applic Potassium Chloride/Sodium Chloride (Ns+20 Meq Kcl -) 20 meq in 1,000 mls @ 75 mls/hr IV ASDIR [facility] Last Admin: 07/27/19 10:32 Dose: 75 mls/hr Insulin Aspart (Novolog Vial Sliding Scale -) 1 vial SQ Q6H [facility]; Protocol Last Admin: 07/27/19 06:05 Dose: Not Given Mupirocin (Bactroban Ointment (For Decolonization) -) 1 applic NS BID [facility] Stop: 07/31/19 09:59 Last Admin: 07/27/19 10:34 Dose: 1 applic Tiotropium [place]/Olodaterol (Stiolto Respimat Inhal [place]) 2 puff IH DAILY [facility] Constitutional: Yes: Well Nourished, No Distress, Calm Eyes: Yes: WNL, Conjunctiva Clear, EOM Intact HENT: Yes: WNL, Atraumatic, Normocephalic Neck: Yes: Supple, Trachea Midline Cardiovascular: Yes: Regular Rate and Rhythm, Tachycardia, S1, S2 Respiratory: Yes: Regular, CTA Bilaterally Gastrointestinal: Yes: Normal Bowel Sounds, Soft Extremities: Yes: WNL Edema: No Peripheral Pulses WNL: Yes Neurological: Yes: WNL, Alert, Oriented ...Motor Strength: WNL Psychiatric: Yes: WNL Labs: Laboratory Results - last 24 hr 07/25/19 07/26/19 07/26/19 21:51 17:02 17:02 WBC 10.5 H RBC 2.80 L Hgb 8.2 L Hct 23.8 L D MCV 85.1 MCH 29.4 MCHC 34.5 RDW 15.3 Plt Count 129 L MPV 8.8 Absolute Neuts (auto) Neutrophils % Lymphocytes % Monocytes % Eosinophils % Basophils % Nucleated RBC % PT with INR 28.50 H INR 2.39 H Sodium Potassium Chloride Carbon Dioxide Anion Gap BUN Creatinine Est GFR (CKD-EPI)AfAm Est GFR (CKD-EPI)NonAf POC Glucometer Random Glucose Calcium Phosphorus Magnesium Blood Type B POSITIVE Antibody Screen Negative Crossmatch See Detail 07/26/19 07/26/19 07/26/19 17:02 17:24 22:27 WBC RBC Hgb Hct MCV MCH MCHC RDW Plt Count MPV Absolute Neuts (auto) Neutrophils % Lymphocytes % Monocytes % Eosinophils % Basophils % Nucleated RBC % PT with INR INR Sodium Potassium Chloride Carbon Dioxide Anion Gap BUN Creatinine Est GFR (CKD-EPI)AfAm Est GFR (CKD-EPI)NonAf POC Glucometer 156 147 Random Glucose Calcium 7.7 L Phosphorus Magnesium Blood Type Antibody Screen Crossmatch 07/27/19 07/27/19 07/27/19 01:20 01:20 01:20 WBC 8.3 RBC 2.64 L Hgb 7.8 L Hct 22.5 L MCV 85.1 MCH 29.4 MCHC 34.5 RDW 15.9 H Plt Count 126 L MPV 8.8 Absolute Neuts (auto) Neutrophils % Lymphocytes % Monocytes % Eosinophils % Basophils % Nucleated RBC % PT with INR 28.10 H INR 2.36 H Sodium Potassium 4.4 Chloride Carbon Dioxide Anion Gap BUN Creatinine Est GFR (CKD-EPI)AfAm Est GFR (CKD-EPI)NonAf POC Glucometer Random Glucose Calcium Phosphorus Magnesium Blood Type Antibody Screen Crossmatch 07/27/19 07/27/19 07/27/19 06:03 06:15 06:15 WBC 7.1 RBC 2.71 L Hgb 8.0 L Hct 23.2 L MCV 85.5 MCH 29.6 MCHC 34.7 RDW 16.0 H Plt Count 123 L MPV 8.5 Absolute Neuts (auto) 4.4 Neutrophils % 61.8 Lymphocytes % 31.7 D Monocytes % 5.5 Eosinophils % 0.3 D Basophils % 0.7 Nucleated RBC % 0 PT with INR INR Sodium 145 Potassium 4.2 Chloride 115 H Carbon Dioxide 28 Anion Gap 3 L BUN 19.0 H Creatinine 0.6 Est GFR (CKD-EPI)AfAm 106.28 Est GFR (CKD-EPI)NonAf 91.70 POC Glucometer 127 Random Glucose 138 H Calcium 7.7 L Phosphorus 1.8 L Magnesium 2.6 H Blood Type Antibody Screen Crossmatch 07/27/19 07/27/19 07:30 11:46 WBC RBC Hgb Hct MCV MCH MCHC RDW Plt Count MPV Absolute Neuts (auto) Neutrophils % Lymphocytes % Monocytes % Eosinophils % Basophils % Nucleated RBC % PT with INR 25.40 H INR 2.14 H Sodium Potassium Chloride Carbon Dioxide Anion Gap BUN Creatinine Est GFR (CKD-EPI)AfAm Est GFR (CKD-EPI)NonAf POC Glucometer 147 Random Glucose Calcium Phosphorus Magnesium Blood Type Antibody Screen Crossmatch Problem List - Problems (1) Anemia Code(s): D64.9 - ANEMIA, UNSPECIFIED Qualifiers: Anemia type: unspecified type Qualified Code(s): D64.9 - Anemia, unspecified (2) Painless rectal bleeding Code(s): K62.5 - HEMORRHAGE OF ANUS AND RECTUM (3) Rectal bleed Code(s): K62.5 - HEMORRHAGE OF ANUS AND RECTUM Assessment/Plan -GI consulted; planned for EGD/colonoscopy -Maintain large bore IV access -Serial CBC -PPI -Normal transfusion threshold -Monitor INR; FFP and vit K for INR>1.5 and persistent bleeding -Hold antihypertensives -Fingersticks -venodynes Patient reports that she will be signing AMA later today. Risks and benefits explained in detail. Dr Zavala
[2019-07-27 12:37] LABS: HEMATOCRIT 24.7 % (32.4-45.2); HEMOGLOBIN 8.3 GM/dL (10.7-15.3); MCH 29.3 pg (25.7-33.7); MCHC 33.5 g/dl (32.0-36.0); MEAN CELL VOLUME 87.4 fl (80-96); MEAN PLT VOLUME 8.8 fl (7.5-11.1); PLATELET COUNT 131 K/MM3 (134-434); RBC 2.82 M/mm3 (3.60-5.2); RDW 16.2 % (11.6-15.6)
[2019-07-27 12:56] VITALS: BMI 29.7
--- NOTE | 2019-07-27 14:32 | ECHO ---
Name: JALEEL RUSSO Exam:Adult Echocardiogram Study Date: 07/27/2019 10:58 AM Age: 73 yrs Height: 68 in Weight: 220 lb BSA: 2.1 m2 BP: 115/67 mmHg MMode/2D Measurements & Calculations IVSd: 0.93 cm Ao root diam: 3.1 cm LVIDd: 5.0 cm LA dimension: 5.0 cm LVIDs: 3.3 cm ACS: 1.7 cm LVPWd: 1.2 cm IVSs: 1.3 cm LVPWs: 1.4 cm EDV(Teich): 116.1 ml ESV(Teich): 43.1 ml Doppler Measurements & Calculations MV E max milton: 95.5 cm/sec Ao V2 max: 145.4 cm/sec MV A max mil[place]: 90.6 cm/sec Ao max P.5 mmHg MV E/A: 1.1 Ao V2 mean: 102.6 cm/sec Ao mean P.6 mmHg Ao V2 VTI: 35.1 cm MR max milton: 431.9 cm/sec TR max milton: 197.7 cm/sec MR max P.6 mmHg TR max P.7 mmHg Med Peak E' [place]: 2.7 cm/sec Med E/e': 34.8 Lat Peak E' [place]: 5.4 cm/sec Lat E/e': 17.8 Procedure The study was technically difficult with many images being suboptimal in quality. Study Quality: Tech nically suboptimal. Left Ventricle The left ventricle is grossly normal size. There is normal left ventricular wall thickness. Ejection Fraction = 45%. Diastolic dysfunction, Grade II (pseudonormalization pattern). Right Ventricle The right ventricle is grossly normal size. The right ventricular systolic function is grossly normal . Atria The left atrium is not well visualized. The left atrium is moderately dilated. Right atrium not well visualized. Mitral Valve The mitral valve is not well visualized. There is mild to moderate mitral valve thickening. Tricuspid Valve The tricuspid valve is not well visualized. There is mild tricuspid regurgitation. Aortic Valve There is mild aortic sclerosis.;. Pericardium/Pleura Not well seen , possible trivial effusion. Interpretation Summary Suboptimal study LV: Grossly normal size with mildly decreased systolic function, EF 45%, diastolic dysfunction grade II RV: grossly normal LA: Dilated Grossly no dignificant valvular dysfunction. Oriana Crum 07/27/2019 02:32 PM
--- NOTE | 2019-07-27 15:01 | PN ---
Teaching Attending Note Name of Resident: Deep Yee ATTENDING PHYSICIAN STATEMENT I saw and evaluated the patient. I reviewed the resident's note and discussed the case with the resident. I agree with the resident's findings and plan as documented. SUBJECTIVE: seen at 8 am No fever or chills. No abd pain ,no CANDELARIO , no light headedness OBJECTIVE: NAD, awake, alert, cooperative. MMM, nl oropharynx. CV: RRR, no MRG Lungs: scattered wheezes in lower lung cormier ABd: soft, NT, ND, nl BS Ext : No edema or erythema . dry skin . Assessment/Plan: 73 y/o lady with h/o A fib, DM, HTN, HLD, CHF, [place] s/p stents x2, CVA x2, on coumadin, COPD who presented with rectal bleed and was found to have coumadin coagulopathy and severe anemia 1- Severe acute blood loss anemia: due to GI bleed . improved 2- GI bleed . most likely lower 3- severe coumadin coagulopathy : improved 4- severe hypokalemia 5- h/o A fib 6- H/o DM plan: - plan was to cont to hold coumadin, and perform colonoscopy. she decided to leave [place] as she has a flight to her home country today. She understands she is at risk for rebleeding and severe anemia that can cause . she was advised to check her self in to the nearest ER when she lands - she was asked to cont to hold coumadin, plavix, and BP meds until she sees
--- NOTE | 2019-07-27 15:08 | PN ---
Progress Note (short form) - Note Progress Note: GI follow up Had a small brown bm this am No abdominal pain On Plavix and Coumadin Vital Signs Temp 98 F 07/27/19 05:00 Pulse 90 07/27/19 08:00 Resp 22 H 07/27/19 08:00 BP 130/60 07/27/19 08:00 Pulse Ox 100 07/27/19 07:50 NAD soft NT ND CBC, BMP 07/27/19 12:12 07/27/19 06:15 INR, PTT INR 2.14 (0.83-1.09) H 07/27/19 07:30 Imp: LGIB, likely diverticular exacerbated by supratherapeutic INR and clopidogrel Now stabilized w INR reversal to normal levels and PRBC Advised colonoscopy but pt plans to sign AMA for a flight home this evening - advised of risks of this, including
--- NOTE | 2019-07-27 15:35 | DS ---
Physical Exam: SUBJECTIVE: Patient seen and examined. No acute events overnight. Pt. had 1 small brown bowel movement. Pt. denies any complaints and is asking to go home. Pt. states that she understands the risks and will go to the hospital immediately upon arriving in [place], daughter was at bedside and is in agreement. OBJECTIVE: Vital Signs Period Temp Pulse Resp BP Sys/Carbajal Pulse Ox Last 24 Hr 98 F-98 F 83-105 14-22 118-149/52-104 100-100 PHYSICAL EXAM GENERAL: Awake, alert, and fully oriented, in no acute distress. HEAD: Normal with no signs of trauma. EYES: sclera anicteric, conjunctiva clear. EARS, NOSE, THROAT: Dry mucous membranes. LUNGS: Anterior breath sounds clear to auscultation, no wheezing or crackles, no accessory muscle use HEART: Regular rate and rhythm, normal S1 and S2 without murmur ABDOMEN: Soft, nontender, obese not distended, normoactive bowel sounds, no guarding, no rebound LOWER EXTREMITIES: 2+ dorsal pedal pulses, warm, well-perfused. No calf tenderness. No peripheral edema. NEUROLOGICAL: Normal speech. Sensation grossly intact through out. PSYCHIATRIC: Cooperative. Good eye contact. Appropriate mood and affect. SKIN: Warm, dry, xerotic LABS Laboratory Results - last 24 hr 07/26/19 07/26/19 07/26/19 17:02 17:02 17:02 WBC 10.5 H RBC 2.80 L Hgb 8.2 L Hct 23.8 L D MCV 85.1 MCH 29.4 MCHC 34.5 RDW 15.3 Plt Count 129 L MPV 8.8 Absolute Neuts (auto) Neutrophils % Lymphocytes % Monocytes % Eosinophils % Basophils % Nucleated RBC % PT with INR 28.50 H INR 2.39 H Sodium Potassium Chloride Carbon Dioxide Anion Gap BUN Creatinine Est GFR (CKD-EPI)AfAm Est GFR (CKD-EPI)NonAf POC Glucometer Random Glucose Calcium 7.7 L Phosphorus Magnesium 07/26/19 07/26/19 07/27/19 17:24 22:27 01:20 WBC 8.3 RBC 2.64 L Hgb 7.8 L Hct 22.5 L MCV 85.1 MCH 29.4 MCHC 34.5 RDW 15.9 H Plt Count 126 L MPV 8.8 Absolute Neuts (auto) Neutrophils % Lymphocytes % Monocytes % Eosinophils % Basophils % Nucleated RBC % PT with INR INR Sodium Potassium Chloride Carbon Dioxide Anion Gap BUN Creatinine Est GFR (CKD-EPI)AfAm Est GFR (CKD-EPI)NonAf POC Glucometer 156 147 Random Glucose Calcium Phosphorus Magnesium 07/27/19 07/27/19 07/27/19 01:20 01:20 06:03 WBC RBC Hgb Hct MCV MCH MCHC RDW Plt Count MPV Absolute Neuts (auto) Neutrophils % Lymphocytes % Monocytes % Eosinophils % Basophils % Nucleated RBC % PT with INR 28.10 H INR 2.36 H Sodium Potassium 4.4 Chloride Carbon Dioxide Anion Gap BUN Creatinine Est GFR (CKD-EPI)AfAm Est GFR (CKD-EPI)NonAf POC Glucometer 127 Random Glucose Calcium Phosphorus Magnesium 07/27/19 07/27/19 07/27/19 06:15 06:15 07:30 WBC 7.1 RBC 2.71 L Hgb 8.0 L Hct 23.2 L MCV 85.5 MCH 29.6 MCHC 34.7 RDW 16.0 H Plt Count 123 L MPV 8.5 Absolute Neuts (auto) 4.4 Neutrophils % 61.8 Lymphocytes % 31.7 D Monocytes % 5.5 Eosinophils % 0.3 D Basophils % 0.7 Nucleated RBC % 0 PT with INR 25.40 H INR 2.14 H Sodium 145 Potassium 4.2 Chloride 115 H Carbon Dioxide 28 Anion Gap 3 L BUN 19.0 H Creatinine 0.6 Est GFR (CKD-EPI)AfAm 106.28 Est GFR (CKD-EPI)NonAf 91.70 POC Glucometer Random Glucose 138 H Calcium 7.7 L Phosphorus 1.8 L Magnesium 2.6 H 07/27/19 07/27/19 11:46 12:12 WBC 9.0 RBC 2.82 L Hgb 8.3 L Hct 24.7 L MCV 87.4 MCH 29.3 MCHC 33.5 RDW 16.2 H Plt Count 131 L MPV 8.8 Absolute Neuts (auto) Neutrophils % Lymphocytes % Monocytes % Eosinophils % Basophils % Nucleated RBC % PT with INR INR Sodium Potassium Chloride Carbon Dioxide Anion Gap BUN Creatinine Est GFR (CKD-EPI)AfAm Est GFR (CKD-EPI)NonAf POC Glucometer 147 Random Glucose Calcium Phosphorus Magnesium HOSPITAL COURSE: Date of Admission:07/25/19 Date of Discharge: 07/27/19 Pt. is a 73 y.o. F w/ PMHx. 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 Pt.s hemoglobin dropped to 4.5. Pt. received 4 units of pRBCs and 4 units of FFP. Pt.'s last hemoglobin was 8.3. Pt. 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 Antihypertensives were held in addition to antiplatelet agents. Pt. had CT Scan of Abdomen and Pelvis which showed liquid in the colon with wall thickening. Pt. was admitted to the ICU and had consults to GI who advised Pt. to stay for colonoscopy. Pt. again stated that she wanted to go home to have the procedure done. Pt. had an echocardiogram which was suboptimal in quality due to Pt.'s size, showed EF: 45% Grade II dysfunction and dilated left atrium. Pt. signed out AMA fr evening flight to [place], with strict recommendations as detailed below. Minutes to complete discharge: 25 Discharge Summary Problems reviewed: Yes Reason For Visit: ANEMIA,RECTAL HEMORRHAGE Current Active Problems Anemia (Acute) Hypokalemia (Acute) Painless rectal bleeding (Acute) Rectal bleed (Acute) Condition: Guarded - Instructions Diet, Activity, Other Instructions: You came in for a rectal bleed. You hemoglobin was 4.5 at its lowest point. We transfused you 4 units of pRRBCs and 4 units of fresh frozen plasma. We gave you Vitamin K to reverse your Warfarin as your INR was 12 at its highest point. We imaged your abdomen and we saw that there was liquid in the colon as well as some inflammation of your colon. We advised you to stay to have a colonoscopy and because we wanted to monitor you to make sure you did not have another episode of bleeding. You stated that you had to leave and that you would go to the hospital as soon as you reached [place]. Please visit the [facility]ital as soon as you get to [place]. You signed out against medical advice. The risks were explained to you. Please follow up with your Primary care doctor and schedule a visit with a Metal Wire Coating Operator to have your blood counts checked and to have a colonoscopy. Please do NOT take any of your blood pressure medications(Coreg ( Carvedilol), Lasix(Furosemide), Lisinopril) or Plavix or Warfarin(Coumadin) until you follow up with your Primary Care Doctor or visit the hospital. Please bring this discharge sheet with you. Referrals: ON STAFF,NOT [Primary Care Provider] - Disposition: AGAINST MEDICAL ADVICE - Home Medications Comprehensive Discharge Medication List: Ambulatory Orders Atorvastatin Ca [Lipitor] 40 mg PO HS 07/26/19 Fluticasone Propionate [Flovent Hfa] 1 puff IH BID 07/26/19 Tiotropium Br/Olodaterol HCl [Stiolto Respimat Inhal [place]] 2 puff IH DAILY 03/06 This patient is new to me today: Yes Date on this admission: 07/28/19 Emergency Visit: Yes ED Registration Date: 07/25/19 Care time: The patient presented to the Emergency Department on the above date and was hospitalized for further evaluation of their emergent condition. Critical Care patient: No - Discharge Referral Referred to [facility] No ATTENDING PHYSICIAN STATEMENT I saw and evaluated the patient. I reviewed the resident's note and discussed the case with the resident. I agree with the resident's findings and plan as documented. SUBJECTIVE: OBJECTIVE: ASSESSMENT AND PLAN:
--- NOTE | 2019-07-27 15:43 | PN ---
Physical Exam: SUBJECTIVE: Patient seen and examined O/N: had small bowel movement w/o blood Thinks that fatigue has improved, Denies lightheadedness. Expresses desire to leave tonight to catch flight back to [place] OBJECTIVE: Vital Signs Period Temp Pulse Resp BP Sys/Carbajal Pulse Ox Last 24 Hr 98 F-98 F 83-99 14-22 118-138/52-80 100-100 GENERAL: The patient is awake, alert, and fully oriented, in no acute distress. HEAD: NC/AT. EYES: extraocular movements intact, sclera anicteric, mild conjunctival pallor. No ptosis. ENT: Ears normal, nares patent, oropharynx clear without exudates, moist mucous membranes. NECK: Trachea midline, full range of motion, supple. LUNGS: Breath sounds equal, clear to auscultation bilaterally, no wheezes, no crackles, no accessory muscle use. Breathing comfortably on RA HEART: Regular rate and rhythm, S1, S2 without murmur, rub or gallop. ABDOMEN: Soft, nontender, nondistended, normoactive bowel sounds, no guarding, no rebound. RECTAL: dried blood on perineum. Possible palpable hemorrhoid at 10oclock. Glove with black-red stool EXTREMITIES: 2+ pulses, warm, well-perfused, no edema. NEUROLOGICAL: Cranial nerves II through XII grossly intact. Normal speech, steady gait from bed to chair. PSYCH: Normal mood, normal affect. SKIN: Warm, dry, normal turgor, no rashes or lesions noted Laboratory Results - last 24 hr 07/26/19 07/26/19 07/26/19 17:02 17:02 17:02 WBC 10.5 H RBC 2.80 L Hgb 8.2 L Hct 23.8 L D MCV 85.1 MCH 29.4 MCHC 34.5 RDW 15.3 Plt Count 129 L MPV 8.8 Absolute Neuts (auto) Neutrophils % Lymphocytes % Monocytes % Eosinophils % Basophils % Nucleated RBC % PT with INR 28.50 H INR 2.39 H Sodium Potassium Chloride Carbon Dioxide Anion Gap BUN Creatinine Est GFR (CKD-EPI)AfAm Est GFR (CKD-EPI)NonAf POC Glucometer Random Glucose Calcium 7.7 L Phosphorus Magnesium 07/26/19 07/26/19 07/27/19 17:24 22:27 01:20 WBC 8.3 RBC 2.64 L Hgb 7.8 L Hct 22.5 L MCV 85.1 MCH 29.4 MCHC 34.5 RDW 15.9 H Plt Count 126 L MPV 8.8 Absolute Neuts (auto) Neutrophils % Lymphocytes % Monocytes % Eosinophils % Basophils % Nucleated RBC % PT with INR INR Sodium Potassium Chloride Carbon Dioxide Anion Gap BUN Creatinine Est GFR (CKD-EPI)AfAm Est GFR (CKD-EPI)NonAf POC Glucometer 156 147 Random Glucose Calcium Phosphorus Magnesium 07/27/19 07/27/19 07/27/19 01:20 01:20 06:03 WBC RBC Hgb Hct MCV MCH MCHC RDW Plt Count MPV Absolute Neuts (auto) Neutrophils % Lymphocytes % Monocytes % Eosinophils % Basophils % Nucleated RBC % PT with INR 28.10 H INR 2.36 H Sodium Potassium 4.4 Chloride Carbon Dioxide Anion Gap BUN Creatinine Est GFR (CKD-EPI)AfAm Est GFR (CKD-EPI)NonAf POC Glucometer 127 Random Glucose Calcium Phosphorus Magnesium 07/27/19 07/27/19 07/27/19 06:15 06:15 07:30 WBC 7.1 RBC 2.71 L Hgb 8.0 L Hct 23.2 L MCV 85.5 MCH 29.6 MCHC 34.7 RDW 16.0 H Plt Count 123 L MPV 8.5 Absolute Neuts (auto) 4.4 Neutrophils % 61.8 Lymphocytes % 31.7 D Monocytes % 5.5 Eosinophils % 0.3 D Basophils % 0.7 Nucleated RBC % 0 PT with INR 25.40 H INR 2.14 H Sodium 145 Potassium 4.2 Chloride 115 H Carbon Dioxide 28 Anion Gap 3 L BUN 19.0 H Creatinine 0.6 Est GFR (CKD-EPI)AfAm 106.28 Est GFR (CKD-EPI)NonAf 91.70 POC Glucometer Random Glucose 138 H Calcium 7.7 L Phosphorus 1.8 L Magnesium 2.6 H 07/27/19 07/27/19 11:46 12:12 WBC 9.0 RBC 2.82 L Hgb 8.3 L Hct 24.7 L MCV 87.4 MCH 29.3 MCHC 33.5 RDW 16.2 H Plt Count 131 L MPV 8.8 Absolute Neuts (auto) Neutrophils % Lymphocytes % Monocytes % Eosinophils % Basophils % Nucleated RBC % PT with INR INR Sodium Potassium Chloride Carbon Dioxide Anion Gap BUN Creatinine Est GFR (CKD-EPI)AfAm Est GFR (CKD-EPI)NonAf POC Glucometer 147 Random Glucose Calcium Phosphorus Magnesium Active Medications Generic Name Dose Route Start Last Admin Trade Name Freq PRN Reason Stop Dose Admin Albuterol Sulfate 1 amp 07/26/19 10:10 Ventolin 0.083% Nebulizer Soln - NEB Q4H PRN SHORT OF BREATH/WHEEZING Chlorhexidine Gluconate 1 applic 07/26/19 22:00 07/26/19 22:19 Hibiclens For Decolonization - TP 1 applic HS NIKUNJ Administration Potassium Chloride/Sodium Chloride 20 meq in 1,000 mls @ 75 mls/hr 07/26/19 19 :30 07/27/19 10:32 Ns+20 Meq Kcl - IV 75 mls/hr ASDIR NIKUNJ Administration Insulin Aspart 1 vial 07/26/19 09:45 07/27/19 06:05 Novolog Vial Sliding Scale - SQ Not Given Q6H NIKUNJ Protocol Mupirocin 1 applic 07/26/19 10:00 07/27/19 10:34 Bactroban Ointment (For Decolonization) - NS 07/31/19 09:59 1 applic BID NIKUNJ Administration Tiotropium [place]/Olodaterol 2 puff 07/27/19 10:00 Stiolto Respimat Inhal [place] IH DAILY NIKUNJ ASSESSMENT/PLAN: 73 y.o. F w/ PMHx. 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 Received pRBC x3, FFP x2. NEURO # lightheaded and fatigue 2/2 acute blood loss anemia - improved after transfusions # h/o CVA - considering restarting ASA and Statin CARDIO # CAD # dyslipidemia RESPIR # COPD - albuterol + Stiolto GI # rectal bleeding 2/2 supratherapeutic INR > INR 11.04, 12.97, 2.05, 2.39, 2.36, 2.14 --s/p vitamin K, FFP x2 > Hgb 5.4, 4.5, 6.8, 8.2, 7.8, 8.0, 8.3 - H/H improved - HD stable(nontachy, normotensive) ENDO # DM - ISS RENAL > Cr 0.6 FEN - NS + K @75 - CLD DVT PPX - SCDs as pt has GIB DISPO - pt plans on signingout AMA on 07/27/19 evening Visit type - Emergency Visit Emergency Visit: No - New Patient This patient is new to me today: Yes Date on this admission: 07/27/19 - Critical Care Critical Care patient: Yes Total Critical Care Time (in minutes): 35 Critical Care Statement: The care of this patient involved high complexity decision making to prevent further life threatening deterioration of the patient 's condition and/or to evaluate & treat vital organ system(s) failure or risk of failure. ATTENDING PHYSICIAN STATEMENT I saw and evaluated the patient. I reviewed the resident's note and discussed the case with the resident. I agree with the resident's findings and plan as documented. SUBJECTIVE: OBJECTIVE: ASSESSMENT AND PLAN:
[2019-07-27 18:13] LABS: HEMATOCRIT 38.6 % (32.4-45.2); HEMOGLOBIN 12.7 GM/dL (10.7-15.3); MCH 28.4 pg (25.7-33.7); MCHC 32.9 g/dl (32.0-36.0); MEAN CELL VOLUME 86.4 fl (80-96); MEAN PLT VOLUME 8.8 fl (7.5-11.1); PLATELET COUNT 103 K/MM3 (134-434); RBC 4.47 M/mm3 (3.60-5.2); RDW 16.1 % (11.6-15.6); WHITE BLOOD COUNT 8.4 K/mm3 (4.0-10.0)
--- NOTE | 2019-07-27 18:16 | PN ---
Progress Note (short form) - Note Progress Note: Notified by the nurse that the patient's BGM was 59. Patient is a known diabetic and has been on ISS throughout her admission. and has had BGMs in the 140's over the past few days. Patient has been on clear liquid diet for UGIB. Patient currently asymptomatic. Patient states that she is leaving AMA and does not wish treatment for her low glucose. Patient currently eating her clear liquid diet without complaint. Will provide the patient with extra juice to go home with. Patient is agreeable to this plan.
[2019-07-27 18:50] VITALS: TEMP 97.6
[2019-07-27 19:07] VITALS: BP 142/48; PULSE 94
== END 2019-07-27 19:42 | disposition left against medical advice (07) | DRG 813 ==
LOC: JER 20:33 → JERBED 22:05 → JICU 07-26 14:06
PROVIDERS: ADMIT Internal Medicine; ATTEND Internal Medicine
PROC: 30233N1 Transfusion of Nonautologous Red Blood Cells into Peripheral Vein, Percutaneous Approach (ICD-10-PCS; principal; 2019-07-26)
PROC: 30233L1 Transfusion of Nonautologous Fresh Plasma into Peripheral Vein, Percutaneous Approach (ICD-10-PCS; 2019-07-26)
PROC: 30233K1 Transfusion of Nonautologous Frozen Plasma into Peripheral Vein, Percutaneous Approach (ICD-10-PCS; 2019-07-26)
DX: D68.32 Hemorrhagic disorder due to extrinsic circulating anticoagulants (principal); K62.5 Hemorrhage of anus and rectum; I69.351 Hemiplegia and hemiparesis following cerebral infarction affecting right dominant side; D62 Acute posthemorrhagic anemia; E87.6 Hypokalemia; I95.1 Orthostatic hypotension; I10 Essential (primary) hypertension; E78.5 Hyperlipidemia, unspecified; I25.10 Atherosclerotic heart disease of native coronary artery without angina pectoris; Z95.5 Presence of coronary angioplasty implant and graft; J44.9 Chronic obstructive pulmonary disease, unspecified; R00.0 Tachycardia, unspecified; E11.65 Type 2 diabetes mellitus with hyperglycemia; D72.829 Elevated white blood cell count, unspecified; E88.09 Other disorders of plasma-protein metabolism, not elsewhere classified
CPT/HCPCS: 36415; 36430; 36511; 74177-TC; 80048; 80053; 82310; 82550; 82962; 83735; 84100; 84132; 84484; 85025; 85027; 85610; 86900; 86922; 87086; 93005; 93010; 93306-TC; 99285-25; J3535; J7030; P9017; P9038; P9058; Q9967